=== PATIENT | male | born 1980 | race Two or more races ===

== ENCOUNTER 2020-11-20 20:32 | Emergency (ER) | payer SELFPAY ==
[~2020-11-20] VITALS: Ht 167.6 cm; Wt 68.0 kg
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
[2020-11-20] MEDS ORDERED: HYDROcodone/Acetamin 5/325 tab ORAL ONE (22:15)
[2020-11-20] MEDS ORDERED: HYDROCODON-ACE1 EA15 ORAL (22:19)
[2020-11-20] MEDS ORDERED: IBUPROFEN600 M1 ORAL (22:19)
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
[2020-11-20] MEDS ORDERED: HYDROmorphone 1mg/ml Carpuject IM ONE (23:15)
[2020-11-20 23:20] VITALS: BP 128/72
[2020-11-20 23:26] VITALS: BP 139/79
--- NOTE | 2020-11-20 23:30 | NUR ---
ER DISCHARGE NOTE: Patient is cleared to be discharged per ERMD, pt is aox4, on room air, with stable vital signs. pt was given dc and prescription instructions, pt was able to verbalize understanding, pt id band removed without complications. pt is able to ambulate with steady gait. pt took all belongings.
[2020-11-20 23:32] VITALS: BP 132/72
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
== END 2020-11-20 23:30 | disposition home or self-care (01) ==
LOC: EMR 22:13
DX: S52.602A Unspecified fracture of lower end of left ulna, initial encounter for closed fracture (principal); V19.3XXA Pedal cyclist (driver) (passenger) injured in unspecified nontraffic accident, initial encounter; Y92.9 Unspecified place or not applicable; S00.91XA Abrasion of unspecified part of head, initial encounter
CPT/HCPCS: 29125; 73110; 73140; 96372; 99284; J1170